=== PATIENT | female | born 1950 | race Caucasian/White ===

== ENCOUNTER → 2021-02-22 | Outpatient (CLI) | payer MEDICARE ==
[~2021-02-22] MED LIST: ASPIR-LOW81 MG PO; CIPRO500 MG PO; LISINOPRIL10 MG PO; NKHM; PYRIDIUM200 MG PO
== END | disposition home or self-care (01) ==
LOC: COVID19 15:14
PROVIDERS: ATTEND Internal Medicine
DX: U07.1 COVID-19 (principal)